=== PATIENT | female | born 1950 | race Two or more races ===

== ENCOUNTER 2019-01-23 08:36 | Outpatient (CLI) | payer OTHER ==
[~2019-01-23 08:36] MED LIST: DIOVAN HCT 320/1 TAB; GLIMEPIRIDE4 MG; NEURONTIN300 MG; NORVASC10 MG
== END 2019-01-23 08:40 | disposition home or self-care (01) ==
LOC: SONOGRAMA 08:36
DX: E04.1 Nontoxic single thyroid nodule (principal)